=== PATIENT | male | born 1995 | race Caucasian/White ===

== ENCOUNTER 2017-11-15 06:53 | Emergency (ER) | payer OTHER ==
[~2017-11-15] VITALS: Ht 182.9 cm; Wt 63.5 kg
[2017-11-15] MEDS ORDERED: ZITHROMAX TRI-500 MG PO (10:49)
== END 2017-11-15 10:36 | disposition home or self-care (01) ==
LOC: ER 06:53
DX: B34.9 Viral infection, unspecified (principal); J11.1 Influenza due to unidentified influenza virus with other respiratory manifestations